=== PATIENT | female | born 1980 | race Two or more races ===

== ENCOUNTER 2023-12-15 13:32 | Emergency (ER) | payer MEDICAID ==
[~2023-12-15] VITALS: Ht 160 cm; Wt 102.1 kg
[2023-12-15 14:04] VITALS: BP 130/49; PULSE 83; RESP 18; O2SAT 99
[2023-12-15] MEDS ORDERED: PREN-96 PO (14:49)
[2023-12-15] MEDS ORDERED: ASPI-498 OR (14:49)
[2023-12-15] MEDS ORDERED: NIF10C PO ×2 (15:00→16:48)
== END 2023-12-15 14:44 | disposition left against medical advice (07) ==
LOC: ER 13:32
DX: O26.893 Other specified pregnancy related conditions, third trimester (principal); R10.9 Unspecified abdominal pain; O21.8 Other vomiting complicating pregnancy; Z3A.31 31 weeks gestation of pregnancy; Z53.21 Procedure and treatment not carried out due to patient leaving prior to being seen by health care provider

== ENCOUNTER 2023-12-15 14:13 | Observation (INO) | payer OTHER ==
[~2023-12-15] VITALS: Ht 162.6 cm; Wt 90.7 kg
[2023-12-15] MEDS ORDERED: PREN-96 PO (14:49)
[2023-12-15] MEDS ORDERED: ASPI-498 OR (14:49)
[2023-12-15] MEDS ORDERED: NIF10C PO ×3 (15:00→16:48)
[2023-12-15] MEDS: LACTATED RINGER'S 1,000 ML IV ONE (15:17)
[2023-12-15] MEDS: TERBUTALINE SULFATE 1 MG/ML 1ML VIAL SC SCH (15:17)
[2023-12-15 16:50] LABS: Basophils # (auto) 0 10 ^3/uL (0-0.2); Basophils % (auto) 0.1 % (0.0-2.0); Eosinophils # (auto) 0 10 ^3/uL (0-0.8); Eosinophils % (auto) 0.3 % (0.0-7.0); Hemoglobin 13.1 g/dL (12.2-16.2); Lymphocytes # (auto) 2.4 10 ^3/uL (0.4-5.4); Lymphocytes % (auto) 23.8 % (10.0-50.0); Mean Corpuscular Hemoglobin 32.5 pg (28.0-32.0); Mean Corpuscular Hgb Conc. 34.4 g/dL (32.0-36.0); Mean Corpuscular Volume 94.5 fL (80.0-100.0); Monocytes # (auto) 0.7 10 ^3/uL (0-1.3); Monocytes % (auto) 7.2 % (0.0-12.0); Neutrophils # (auto) 7.1 10 ^3/uL (1.6-8.6); Neutrophils % (auto) 68.6 % (37.0-80.0); Red Blood Cells 4.02 10^6/uL (4.0-5.20); Red Cell Distribution Width 13.7 % (11.8-14.3); White Blood Cell 10.3 10^3/uL (4.4-10.8)
[2023-12-15 17:05] LABS: INR 0.99 (0.9-1.15); Partial Thromboplastin Time 28.2 SEC (24.5-34.5); Prothrombin Time 10.4 sec (9.3-11.8)
[2023-12-15 17:10] LABS: Alanine Aminotransferase 128 U/L (7-40); Albumin 3.5 g/dL (3.2-4.8); Alkaline Phosphatase 115 U/L (46-116); Anion Gap 8 (5-15); Aspartate Aminotransferase 158 U/L (13-40); Bilirubin, Total 1.9 mg/dL (0.2-1.0); Calcium 8.8 mg/dL (8.7-10.4); Carbon Dioxide 22 mmol/L (20-30); Chloride 108 mmol/L (98-107); Glucose 100 mg/dL (74-106); Sodium 138 mmol/L (136-145); Total Protein 6.2 g/dL (5.7-8.2)
[2023-12-15 17:18] LABS: BUN/Creatinine Ratio 10.9 (10.0-20.0); Blood Urea Nitrogen < 5 mg/dL (9-23)
[2023-12-15] MEDS: POTASSIUM CHL 20 Meq TABLET PO ONE (17:48)
[2023-12-15 18:06] LABS: Urine Bacteria NONE SEEN /hpf (None Seen); Urine Blood 1+ /uL (Negative); Urine Clarity HAZY (Clear); Urine Color Yellow (Yellow); Urine Mucus FEW (None Seen); Urine Protein, UAD TRACE (Negative); Urine Specific Gravity 1.017 (1.001-1.035); Urine Urobilinogen Normal (Negative); Urine WBC 9 /hpf (0 - 5); Urine pH 6.5 (5.0-8.0)
[2023-12-15 18:12] LABS: Amphetamine Screen, Urine Neg (NEGATIVE)
[2023-12-15 18:13] LABS: Barbiturate Scree,Urine Neg (NEGATIVE); Benzodiazephine Screen, Urine Neg (NEGATIVE); Cannabinoid Screen, Urine Neg (NEGATIVE); Cocaine Screen, Urine Neg (NEGATIVE); Opiate Scree,Urine Neg (NEGATIVE); Phencyclidine Screen, Urine Neg (NEGATIVE)
[2023-12-15 18:34] LABS: Hepatitis B Surface Antigen Negative (Negative)
[2023-12-15 18:54] LABS: Hepatitis A Ab IgM Negative
[2023-12-15 18:55] LABS: Hepatitis B Core IgM Negative; Hepatitis C Antibody Negative (Negative)
[2023-12-16 06:06] LABS: RPR Non Reactive (Non Reactive)
[2023-12-16 11:06] LABS: Rubella Antibodies, IgG 1.57 index (Immune >0.99)
== END 2023-12-15 17:52 | disposition home or self-care (01) ==
LOC: LDRP 14:13
PROVIDERS: ADMIT Obstetrics & Gynecology; ATTEND Obstetrics & Gynecology
DX: O60.03 Preterm labor without delivery, third trimester (principal); O26.892 Other specified pregnancy related conditions, second trimester; R10.9 Unspecified abdominal pain; Z3A.31 31 weeks gestation of pregnancy; Z88.0 Allergy status to penicillin; Z79.899 Other long term (current) drug therapy
CPT/HCPCS: 36415; 59025; 76805; 80053; 80074; 80307; 81001; 81002; 83036; 85025; 85610; 85730; 86592; 86703; 86762; 87340; 94760; 96360; 96361; 96372; G0378; J3105

== ENCOUNTER 2023-12-15 22:47 | Observation (INO) | payer OTHER ==
[~2023-12-15] VITALS: Ht 162.6 cm; Wt 90.7 kg
[~2023-12-15 22:47] MED LIST: ASPI-498 OR; NIF10C PO; PREN-96 PO
== END 2023-12-16 01:18 | disposition home or self-care (01) ==
LOC: LDRP 22:47
PROVIDERS: ADMIT Obstetrics & Gynecology; ATTEND Obstetrics & Gynecology
DX: O62.9 Abnormality of forces of labor, unspecified (principal); O26.893 Other specified pregnancy related conditions, third trimester; R10.13 Epigastric pain; Z3A.31 31 weeks gestation of pregnancy; Z88.0 Allergy status to penicillin
CPT/HCPCS: 59025; 81002; 94760; G0378

== ENCOUNTER 2023-12-18 11:08 | Observation (INO) | payer OTHER ==
[~2023-12-18] VITALS: Ht 162.6 cm; Wt 96.2 kg
[2023-12-18 12:22] LABS: Basophils # (auto) 0 10 ^3/uL (0-0.2); Basophils % (auto) 0.4 % (0.0-2.0); Eosinophils # (auto) 0.1 10 ^3/uL (0-0.8); Eosinophils % (auto) 0.8 % (0.0-7.0); Hematocrit 38.6 % (36.0-46.0); Hemoglobin 13.1 g/dL (12.2-16.2); Lymphocytes # (auto) 1.4 10 ^3/uL (0.4-5.4); Mean Corpuscular Hemoglobin 32.2 pg (28.0-32.0); Mean Corpuscular Hgb Conc. 33.8 g/dL (32.0-36.0); Mean Corpuscular Volume 95.2 fL (80.0-100.0); Monocytes # (auto) 0.7 10 ^3/uL (0-1.3); Monocytes % (auto) 8.2 % (0.0-12.0); Neutrophils # (auto) 5.9 10 ^3/uL (1.6-8.6); Neutrophils % (auto) 73.6 % (37.0-80.0); Red Blood Cells 4.06 10^6/uL (4.0-5.20); Red Cell Distribution Width 13.9 % (11.8-14.3); White Blood Cell 8.1 10^3/uL (4.4-10.8)
[2023-12-18 12:37] LABS: Alanine Aminotransferase 116 U/L (7-40); Albumin 3.5 g/dL (3.2-4.8); Alkaline Phosphatase 113 U/L (46-116); Anion Gap 7 (5-15); Aspartate Aminotransferase 58 U/L (13-40); Bilirubin, Total 0.5 mg/dL (0.2-1.0); Calcium 8.7 mg/dL (8.7-10.4); Carbon Dioxide 22 mmol/L (20-30); Chloride 109 mmol/L (98-107); Glucose 93 mg/dL (74-106); INR 0.98 (0.9-1.15); Partial Thromboplastin Time 29.3 SEC (24.5-34.5); Potassium 3.8 mmol/L (3.5-5.1); Prothrombin Time 10.3 sec (9.3-11.8); Sodium 138 mmol/L (136-145); Uric Acid 3.4 mg/dL (3.1-7.8)
[2023-12-18 12:39] LABS: BUN/Creatinine Ratio 9.8 (10.0-20.0); Blood Urea Nitrogen < 5 mg/dL (9-23)
[2023-12-18 12:49] LABS: Urine Bacteria FEW /hpf (None Seen); Urine Blood Negative /uL (Negative); Urine Clarity HAZY (Clear); Urine Color Yellow (Yellow); Urine Mucus FEW (None Seen); Urine Protein, UAD TRACE (Negative); Urine Specific Gravity 1.018 (1.001-1.035); Urine Urobilinogen Normal (Negative); Urine WBC 3 /hpf (0 - 5); Urine pH 6.5 (5.0-8.0)
[2023-12-18 13:03] LABS: Creatinine, Urine 129.09 mg/dL (30.0-125.0); Urine Protein/Creatinine Ratio 0.22
[2023-12-18] MEDS: NIFEdipine 10 MG CAP PO ONE (13:10)
== END 2023-12-18 13:46 | disposition home or self-care (01) ==
LOC: LDRP 11:08
PROVIDERS: ADMIT Obstetrics & Gynecology; ATTEND Obstetrics & Gynecology
DX: O60.03 Preterm labor without delivery, third trimester (principal); O21.2 Late vomiting of pregnancy; O26.893 Other specified pregnancy related conditions, third trimester; R10.13 Epigastric pain; R79.89 Other specified abnormal findings of blood chemistry; Z3A.32 32 weeks gestation of pregnancy; Z88.0 Allergy status to penicillin
CPT/HCPCS: 36415; 59025; 76705; 76818; 80053; 81001; 81002; 82570; 84156; 84550; 85025; 85610; 85730; G0378

== ENCOUNTER 2023-12-21 09:45 | Observation (INO) | payer OTHER | END 2023-12-21 12:09 | disposition home or self-care (01) | LOC: LDRP 09:45 → UNDOADMOB 09:45 → LDRP 09:56 → UNDODISOB 12:09 | PROVIDERS: ADMIT Obstetrics & Gynecology; ATTEND Obstetrics & Gynecology | DX: O24.419 Gestational diabetes mellitus in pregnancy, unspecified control (principal); O60.03 Preterm labor without delivery, third trimester; O26.893 Other specified pregnancy related conditions, third trimester; R51.9 Headache, unspecified; R79.89 Other specified abnormal findings of blood chemistry; Z3A.32 32 weeks gestation of pregnancy; Z88.0 Allergy status to penicillin | CPT/HCPCS: 59025; 76817; 76818; 81002; 82948; 82962; G0378 ==

== ENCOUNTER 2023-12-28 09:56 | Observation (INO) | payer MEDICAID, OTHER | END 2023-12-28 11:25 | disposition home or self-care (01) | LOC: LDRP 09:56 → UNDOADMOB 09:56 → LDRP 10:03 → UNDODISOB 11:25 | PROVIDERS: ADMIT Obstetrics & Gynecology; ATTEND Obstetrics & Gynecology | DX: O24.419 Gestational diabetes mellitus in pregnancy, unspecified control (principal); O60.03 Preterm labor without delivery, third trimester; Z3A.33 33 weeks gestation of pregnancy; Z88.0 Allergy status to penicillin | CPT/HCPCS: 59025; 76818; 81002; 82948; 82962; 94760; G0378 ==

== ENCOUNTER 2024-01-04 05:55 | Inpatient (IN) | payer MEDICAID ==
[~2024-01-04] VITALS: Ht 160 cm; Wt 86.2 kg
[2024-01-04] MEDS ORDERED: MAGNESIUM SULFATE 100 ML IV ONE (06:30)
[2024-01-04] MEDS: MAGNESIUM SULFATE 100 ML IV ONE (06:41)
[2024-01-04] MEDS: TERBUTALINE SULFATE 1 MG/ML 1ML VIAL SC SCH (06:45)
[2024-01-04] MEDS: CLINDAMYCIN 900MG IV 50 ML IV ONE (06:45)
[2024-01-04] MEDS: BETAMETHASONE ACET (30mg/5ml) 5ml Vial 6mg/ml IM SCH (06:48)
[2024-01-04 06:53] LABS: Basophils # (auto) 0.1 10 ^3/uL (0-0.2); Basophils % (auto) 0.9 % (0.0-2.0); Eosinophils # (auto) 0.1 10 ^3/uL (0-0.8); Eosinophils % (auto) 0.7 % (0.0-7.0); Hematocrit 39.7 % (36.0-46.0); Hemoglobin 13.6 g/dL (12.2-16.2); Lymphocytes # (auto) 1.6 10 ^3/uL (0.4-5.4); Lymphocytes % (auto) 18.8 % (10.0-50.0); Mean Corpuscular Hemoglobin 32.1 pg (28.0-32.0); Mean Corpuscular Hgb Conc. 34.1 g/dL (32.0-36.0); Monocytes # (auto) 0.7 10 ^3/uL (0-1.3); Monocytes % (auto) 7.6 % (0.0-12.0); Neutrophils # (auto) 6.2 10 ^3/uL (1.6-8.6); Red Blood Cells 4.23 10^6/uL (4.0-5.20); Red Cell Distribution Width 13.9 % (11.8-14.3); White Blood Cell 8.6 10^3/uL (4.4-10.8)
[2024-01-04 07:02] LABS: Urine Bacteria FEW /hpf (None Seen); Urine Blood Negative /uL (Negative); Urine Clarity Clear (Clear); Urine Color Yellow (Yellow); Urine Mucus FEW (None Seen); Urine Protein, UAD Negative (Negative); Urine Specific Gravity 1.014 (1.001-1.035); Urine Urobilinogen Normal (Negative); Urine WBC 1 /hpf (0 - 5)
[2024-01-04] MEDS: MAGNESIUM SULFATE 40MG/ML 1,000 ML IV SCH (07:03)
[2024-01-04 07:09] LABS: Amphetamine Screen, Urine Neg (NEGATIVE); Barbiturate Scree,Urine Neg (NEGATIVE); Benzodiazephine Screen, Urine Neg (NEGATIVE); Cannabinoid Screen, Urine Neg (NEGATIVE); Cocaine Screen, Urine Neg (NEGATIVE); Opiate Scree,Urine Neg (NEGATIVE); Phencyclidine Screen, Urine Neg (NEGATIVE)
[2024-01-04 07:11] LABS: Alanine Aminotransferase 25 U/L (7-40); Alkaline Phosphatase 101 U/L (46-116); Anion Gap 9 (5-15); Aspartate Aminotransferase 20 U/L (13-40); BUN/Creatinine Ratio 10.2 (10.0-20.0); Blood Urea Nitrogen 5 mg/dL (9-23); Calcium 9.2 mg/dL (8.5-10.1); Carbon Dioxide 21 mmol/L (20-30); Chloride 108 mmol/L (98-107); Glucose 105 mg/dL (74-106); Potassium 3.5 mmol/L (3.5-5.1); Sodium 138 mmol/L (136-145)
[2024-01-04 07:12] LABS: Albumin 3.8 g/dL (3.2-4.8); Bilirubin, Total 0.5 mg/dL (0.2-1.0); Total Protein 6.3 g/dL (5.7-8.2)
[2024-01-04 07:27] LABS: INR 0.98 (0.9-1.15); Partial Thromboplastin Time 27.7 SEC (24.5-34.5); Prothrombin Time 10.3 sec (9.3-11.8)
[2024-01-05 08:06] LABS: RPR Non Reactive (Non Reactive)
[2024-01-06 18:06] LABS: Treponema pallidum Ab (FTA-Ab) Non Reactive (Non Reactive)
== END 2024-01-04 07:45 | disposition home or self-care (01) | DRG 566 ==
LOC: LDRP 05:55 → OBSVTOIN 06:30
PROVIDERS: ADMIT Obstetrics & Gynecology; ATTEND Obstetrics & Gynecology
DX: O42.913 Preterm premature rupture of membranes, unspecified as to length of time between rupture and onset of labor, third trimester (principal); O24.419 Gestational diabetes mellitus in pregnancy, unspecified control; E66.01 Morbid (severe) obesity due to excess calories; O99.213 Obesity complicating pregnancy, third trimester; Z3A.34 34 weeks gestation of pregnancy; Z88.0 Allergy status to penicillin
CPT/HCPCS: 36415; 59025; 80053; 80307; 81001; 81002; 85025; 85610; 85730; 86592; 86850; 86900; 86901; 94760; 96360; 96361; 96365; 96366; 96372; G0378; J3490

== ENCOUNTER 2024-02-16 21:04 | Emergency (ER) | payer MEDICAID ==
[~2024-02-16] VITALS: Ht 157.5 cm; Wt 95.7 kg
[~2024-02-16 21:04] MED LIST changes: +DICY10CA PO
[2024-02-16 21:10] VITALS: BP 110/75; PULSE 65; RESP 18; O2SAT 99
[2024-02-16] MEDS ORDERED: MORPHINE SULFATE 4 MG/ML SYR/VIAL IV ONE (21:30)
[2024-02-16] MEDS ORDERED: SODIUM CHLORIDE 0.9% 1,000 ML IVB ONE (21:30)
[2024-02-16] MEDS ORDERED: ONDANSETRON HCL 4 MG/2 ML VIAL IV ONE (21:30)
[2024-02-16] MEDS ORDERED: PANTOPRAZOLE 40 MG/10 ML VIAL INJ IV ONE (21:30)
[2024-02-16 21:46] LABS: Basophils # (auto) 0.1 10 ^3/uL (0-0.2); Basophils % (auto) 0.7 % (0.0-2.0); Eosinophils # (auto) 0.2 10 ^3/uL (0-0.8); Eosinophils % (auto) 3.2 % (0.0-7.0); Hematocrit 38.9 % (36.0-46.0); Hemoglobin 13.4 g/dL (12.2-16.2); Lymphocytes # (auto) 2.4 10 ^3/uL (0.4-5.4); Mean Corpuscular Hemoglobin 32.1 pg (28.0-32.0); Mean Corpuscular Hgb Conc. 34.4 g/dL (32.0-36.0); Mean Corpuscular Volume 93.3 fL (80.0-100.0); Monocytes # (auto) 0.6 10 ^3/uL (0-1.3); Monocytes % (auto) 8.4 % (0.0-12.0); Neutrophils # (auto) 4.2 10 ^3/uL (1.6-8.6); Neutrophils % (auto) 55.7 % (37.0-80.0); Red Blood Cells 4.17 10^6/uL (4.0-5.20); Red Cell Distribution Width 13.4 % (11.8-14.3); White Blood Cell 7.6 10^3/uL (4.4-10.8)
[2024-02-16 22:09] LABS: Alanine Aminotransferase 66 U/L (7-40); Albumin 4.4 g/dL (3.2-4.8); Alkaline Phosphatase 121 U/L (46-116); Anion Gap 8 (5-15); Aspartate Aminotransferase 20 U/L (13-40); BUN/Creatinine Ratio 15.1 (10.0-20.0); Blood Urea Nitrogen 13 mg/dL (9-23); Calcium 9.9 mg/dL (8.7-10.4); Carbon Dioxide 28 mmol/L (20-30); Chloride 104 mmol/L (98-107); Glucose 86 mg/dL (74-106); Lipase 49 U/L (12-53); Potassium 4.3 mmol/L (3.5-5.1); Sodium 140 mmol/L (136-145)
[2024-02-16 22:10] LABS: Bilirubin, Total 0.4 mg/dL (0.2-1.0)
[2024-02-16 22:25] LABS: Urine Bacteria None Seen /hpf (None Seen)
[2024-02-16 22:48] LABS: Urine Blood Negative /uL (Negative); Urine Clarity Clear (Clear); Urine Color Light-Yellow (Yellow); Urine Mucus FEW (None Seen); Urine Protein, UAD Negative (Negative); Urine Specific Gravity 1.021 (1.001-1.035); Urine Urobilinogen Normal (Negative); Urine WBC 3 /hpf (0 - 5)
[2024-02-17] MEDS ORDERED: LIDOCAINE W/ EPINEPHRINE 1% 20ML VIAL ONE (14:38)
[2024-02-18] MEDS ORDERED: METR-344 PO (14:37)
[2024-02-18] MEDS ORDERED: OXY5T PO (14:37)
[2024-02-18] MEDS ORDERED: LEVO500T91 PO (14:37)
== END 2024-02-17 03:07 | disposition left against medical advice (07) ==
LOC: ER 21:04
DX: K80.20 Calculus of gallbladder without cholecystitis without obstruction (principal); N39.0 Urinary tract infection, site not specified; Z88.0 Allergy status to penicillin
CPT/HCPCS: 36415; 76705; 80053; 81001; 83690; 85025; 99284; J2270; J2405; C9113

== ENCOUNTER 2024-02-17 09:25 | Inpatient (IN) | payer MEDICAID ==
[~2024-02-17] VITALS: Ht 160 cm; Wt 102.0 kg
[2024-02-17] MEDS: ONDANSETRON HCL 4 MG/2 ML VIAL IV ONE (11:02)
[2024-02-17] MEDS: MORPHINE SULFATE 4 MG/ML SYR/VIAL IV ONE (11:03)
[2024-02-17] MEDS ORDERED: DOCUSATE SOD 100 MG CAP PO PRN (13:00)
[2024-02-17] MEDS ORDERED: ONDANSETRON HCL 4 MG/2 ML VIAL IV PRN ×2 (13:00→16:45)
[2024-02-17] MEDS: SODIUM CHLORIDE 0.9% 1,000 ML IV SCH ×2 (14:02→19:29)
[2024-02-17] MEDS: metroNIDAZOLE 500MG/100ML 100 ML IV ONE ×2 (14:45→15:13)
[2024-02-17] MEDS: levoFLOXacin 500MG 100 ML IV ONE (14:45)
[2024-02-17] MEDS: CELECOXIB 100 MG CAP ONE (14:48)
[2024-02-17] MEDS: GABAPENTIN 400 MG CAP ONE (14:48)
[2024-02-17] MEDS: ACETAMINOPHEN IV 100 ML IV ONE (14:48)
[2024-02-17] MEDS: CIPROFLOXACIN 400MG/200ML 200 ML IV ONE (15:13)
[2024-02-17] MEDS ORDERED: LIDOCAINE 2% (LOCAL ANESTH.) PF 5ml SDV ONE (15:21)
[2024-02-17] MEDS ORDERED: PROPOFOL 10 MG/ML 20 ML IV ONE (15:21)
[2024-02-17] MEDS ORDERED: KETOROLAC TROMETH 30 MG/ML 1ML VIAL ONE (15:21)
[2024-02-17] MEDS ORDERED: ONDANSETRON HCL 4 MG/2 ML VIAL ONE (15:21)
[2024-02-17] MEDS ORDERED: ROCURONIUM 10MG/ML 10ML VIAL IV ONE (15:21)
[2024-02-17] MEDS ORDERED: GLYCOPYRROLATE 0.2 MG/ML 1ML VIAL ONE (15:21)
[2024-02-17] MEDS ORDERED: DexAMETHasone SOD PHOS 10MG/1ML VIAL INJ ONE (15:21)
[2024-02-17] MEDS ORDERED: KETAMINE 50mg/ML 1ml syringe ONE (15:22)
[2024-02-17] MEDS ORDERED: fentaNYL CITRATE 100 MCG/2 ML VL ONE (15:22)
[2024-02-17] MEDS ORDERED: SUGAMMADEX 200mg/2ml Vial (100MG/ML) IV ONE (15:23)
[2024-02-17 15:30] LABS: INR 1.03 (0.9-1.15); Prothrombin Time 10.9 sec (9.3-11.8)
[2024-02-17 16:25] VITALS: PULSE 67; RESP 13
[2024-02-17] MEDS: HYDROmorphone HCL 2 MG/ML VL/or syr IV ONE (16:43)
[2024-02-17] MEDS ORDERED: FLUMAZENIL 0.1 MG/ML INJ 10ML MDV IV PRN (16:45)
[2024-02-17] MEDS ORDERED: ePHEDrine SULFATE 50 MG/ML AMP IV PRN (16:45)
[2024-02-17] MEDS ORDERED: NALOXONE HCL 0.4 MG/ML VIAL IV PRN (16:45)
[2024-02-17] MEDS ORDERED: ACETAMINOPHEN/CODEINE#3 (300/30mg) TAB PO PRN (16:45)
[2024-02-17] MEDS ORDERED: hydrALAZINE HCL 20 MG/ML VL IV PRN (16:45)
[2024-02-17] MEDS ORDERED: LABETALOL HCL 5 MG/ML 4ML SYRINGE IV PRN (16:45)
[2024-02-17] MEDS ORDERED: fentaNYL CITRATE 100 MCG/2 ML VL IV PRN (16:45)
[2024-02-17] MEDS: HYDROmorphone HCL 2 MG/ML VL/or syr ONE (16:47)
[2024-02-17] MEDS: HYDROmorphone HCL 2 MG/ML VL/or syr IV PRN (16:52)
[2024-02-17 18:02] VITALS: BP 104/63; PULSE 67; RESP 18; TEMP 97.8; O2SAT 97
[2024-02-17 18:03] VITALS: BP 104/63; PULSE 67; TEMP 97.8; O2SAT 97
[2024-02-17] MEDS: MORPHINE SULFATE INJ 2 MG/ml SYRG IV PRN (19:38)
[2024-02-17 21:00] VITALS: BP 107/61; PULSE 76; RESP 18; TEMP 98.5; O2SAT 91
[2024-02-17] MEDS: metroNIDAZOLE 500MG/100ML 100 ML IV SCH (21:57)
[2024-02-18 00:02] VITALS: BP 104/64; PULSE 78; RESP 16; TEMP 97.8; O2SAT 94
[2024-02-18 05:00] VITALS: BP 101/55; PULSE 57; RESP 16; TEMP 97.7; O2SAT 94
[2024-02-18 06:33] LABS: Basophils # (auto) 0 10 ^3/uL (0-0.2); Basophils % (auto) 0.2 % (0.0-2.0); Eosinophils # (auto) 0 10 ^3/uL (0-0.8); Hematocrit 41.6 % (36.0-46.0); Lymphocytes % (auto) 11.4 % (10.0-50.0); Mean Corpuscular Hemoglobin 32.1 pg (28.0-32.0); Mean Corpuscular Hgb Conc. 33.7 g/dL (32.0-36.0); Mean Corpuscular Volume 95.2 fL (80.0-100.0); Monocytes # (auto) 0.2 10 ^3/uL (0-1.3); Monocytes % (auto) 2.9 % (0.0-12.0); Neutrophils # (auto) 7.3 10 ^3/uL (1.6-8.6); Neutrophils % (auto) 85.5 % (37.0-80.0); Nucleated Red Blood Cells % 0.1 %; Red Blood Cells 4.37 10^6/uL (4.0-5.20); Red Cell Distribution Width 13.5 % (11.8-14.3); White Blood Cell 8.5 10^3/uL (4.4-10.8)
[2024-02-18 06:53] LABS: Alanine Aminotransferase 56 U/L (7-40); Alkaline Phosphatase 112 U/L (46-116); Anion Gap 8 (5-15); Aspartate Aminotransferase 25 U/L (13-40); BUN/Creatinine Ratio 8.7 (10.0-20.0); Bilirubin, Total 0.7 mg/dL (0.2-1.0); Blood Urea Nitrogen 6 mg/dL (9-23); Calcium 9.3 mg/dL (8.7-10.4); Carbon Dioxide 21 mmol/L (20-30); Chloride 107 mmol/L (98-107); Glucose 122 mg/dL (74-106); Potassium 4.1 mmol/L (3.5-5.1); Sodium 136 mmol/L (136-145)
[2024-02-18 06:54] LABS: Total Protein 6.8 g/dL (5.7-8.2)
[2024-02-18 09:00] VITALS: BP 99/49; PULSE 60; RESP 18; TEMP 98.2; O2SAT 95
[2024-02-18] MEDS: levoFLOXacin 500MG 100 ML IV SCH (09:29)
[2024-02-18] MEDS: oxyCODONE HCL 5MG TAB PO PRN (09:29)
[2024-02-18 12:32] VITALS: BP 116/59; PULSE 64; RESP 18; TEMP 98.2; O2SAT 93
[2024-02-18] MEDS ORDERED: OXY5T PO (14:37)
[2024-02-18] MEDS ORDERED: METR-344 PO (14:37)
[2024-02-18] MEDS ORDERED: LEVO500T91 PO (14:37)
[2024-02-18 16:39] VITALS: BP 110/56; PULSE 71; RESP 20; TEMP 98.3; O2SAT 93
== END 2024-02-18 18:50 | disposition home or self-care (01) | DRG 263 ==
LOC: ER 09:25 → OVERFLOW 14:44 → EAST 18:00
PROVIDERS: ADMIT Internal Medicine; ATTEND Internal Medicine
PROC: 0FT44ZZ Resection of Gallbladder, Percutaneous Endoscopic Approach (ICD-10-PCS; principal; 2024-02-17 15:25)
DX: K80.10 Calculus of gallbladder with chronic cholecystitis without obstruction (principal); Z79.82 Long term (current) use of aspirin; Z88.0 Allergy status to penicillin; Z79.899 Other long term (current) drug therapy
CPT/HCPCS: 36415; 78226; 80053; 81025; 82565; 84702; 85025; 85610; 86850; 86900; 86901; 96361; 96374; 96375; G0378; J0131; J1100; J1885; J1956; J2001; J2405; J2704; J3490

== ENCOUNTER 2024-11-14 19:08 | Inpatient (IN) | payer MEDICAID ==
[~2024-11-14 19:08] MED LIST changes: +LEVO500T91 PO; +METR-344 PO; -NIF10C PO; +NIFE10CA52 PO; +OXY5T PO
--- NOTE | 2024-11-14 19:55 | ED.PDOC ---
GI ASSESSMENT HPI Comments Fiordaliza Santana is a 44-year-old female patient who presents to the ER referred by urgent care due to burning epigastric pain which started at 1:00 a.m. today, intensity 9/10, triggered after eating (tamales and coffee) and improved after fasting, associated with one episode of yellow emesis, chills, reflux and belching. Patient had presented same symptoms approximately eight months ago when she was diagnosed with cholecystitis, she is currently status post a cholecystectomy. Denies fever, palpitation, syncope, chest pain, dyspnea, nausea, diarrhea, constipation, bleeding, sick contacts, recent travel and motor or sensory deficits. Past medical history: GERD, 2023 cholecystitis status post Josefina-Lap , gestations two, para two, A0 (diagnosed use contraception methods, she is not sexually active at the moment) Surgical history 2023 Josefina-Lap Family history: Noncontributory Social history: Lives in [place] with and two sons. Denies current tobacco, alcohol and other drug abuse Allergies: Penicillins Home medication: Denies Chief Complaint: Abdominal Pain Time Seen by MD: 19:13 Primary Care Provider: UNKNOWN Allergies: Coded Allergies: Penicillins (Verified Allergy, Unknown, 12/18/23) Home Meds Active Scripts Oxycodone Hcl (OXYCODONE HCL) 5 Mg Tb, 5 MG PO Q8HPRN PRN, #10 TAB Prov:LINDA VICTORIA MD 02/18/24 Metronidazole (Flagyl) 500 Mg Tab, 1 TAB PO TID, #21 TAB Prov:LINDA VICTORIA MD 02/18/24 Levofloxacin Hemihydrate (LEVAQUIN 500 MG) 500 Mg Tab, 1 TAB PO DAILY, #7 TAB Prov:LINDA VICTORIA MD 02/18/24 Dicyclomine Hcl (BENTYL CAPSULE) 10 Mg Cp, 2 CAP PO Q6HPRN PRN, #30 CAP 3 Refills Prov:VASU VAUGHAN DO 01/28/24 Reported Medications Nifedipine (PROCARDIA CAPSULE) 10 Mg Cp, 10 MG PO Q6HR, CAP 12/15/23 Aspirin (ASPIRIN 81) 81 Mg Tab, 81 MG OR, TAB 12/15/23 Vit W/ Ferrous Fumara ( One Daily) Daily Tab, 1 TAB PO DAILY, #90 TAB 3 Refills 12/15/23 Past Medical History PAST MEDICAL HISTORY: Denies Surgical History: Denies all surgeries DERMATOLOGY PHYSICIAN History: No Pertinent DERMATOLOGY PHYSICIAN History Family History Family History: Reviewed,noncontributory to illness Social History Smoker: Non-Smoker Alcohol: Denies ETOH Use Drugs: Denies Drug Use Lives In: Home Physical Exam General Appearance: No Apparent Distress, Normal HEENT: Normal ENT Inspection, Pharynx Normal, TMs Normal Neck: Full Range of Motion, Non-Tender, Normal, Normal Inspection Respiratory: Chest Non-Tender, Lungs Clear, No Accessory Muscle Use, No Respiratory Distress, Normal Breath Sounds Cardiovascular: No Edema, No JVD, No Murmur, No Gallop, Normal Peripheral Pulses, Regular Rate/Rhythm Breast Exam: Deferred Gastrointestinal: Distended, Epigastric, No Organomegaly, No Pulsatile Mass, Normal Bowel Sounds, RUQ, Tenderness Genitalia: Deferred Pelvic: Deferred Rectal: Deferred Extremities: No calf tenderness, Normal capillary refill, Normal inspection, Normal range of motion, Non-tender, No pedal edema Neurologic: Alert, food preparation worker II-XII nml as Tested, No Motor Deficits, Normal Affect, Normal Mood, No Sensory Deficits Cerebellar Function: Normal Reflexes: Normal Skin: Dry, Normal Color, Warm Lymphatic: No Adenopathy Was a procedure done? Was a procedure done?: No GI differential Dx Differential Diagnosis: Appendicitis, Cholangitis, Diverticular disease, Ectopic , Esophagitis, Gastritis/PUD, Gastroenteritis, Hepatitis, Pancreatitis, UTI, Urolithiasis X-Ray, Labs, Meds, VS Vital Signs Date Time Temp Pulse Resp B/P (MAP) Pulse Ox O2 Delivery O2 Flow Rate FiO2 11/14/24 19:25 98.1 72 20 132/69 (90) 99 Lab Test 11/14/24 19:53 11/14/24 19:50 Range/Units White Blood Count 7.2 4.4-10.8 10^3/uL Red Blood Count 4.98 4.0-5.20 10^6/uL Hemoglobin 16.1 12.2-16.2 g/dL Hematocrit 46.8 H 36.0-46.0 % Mean Corpuscular Volume 94.0 80.0-100.0 fL Mean Corpuscular Hemoglobin 32.4 H 28.0-32.0 pg Mean Corpuscular Hemoglobin Concent 34.5 32.0-36.0 g/dL Red Cell Distribution Width 13.2 11.8-14.3 % Platelet Count 331 140-450 10^3/uL Mean Platelet Volume 7.6 6.9-10.8 fL Neutrophils (%) (Auto) 68.8 37.0-80.0 % Lymphocytes (%) (Auto) 22.3 10.0-50.0 % Monocytes (%) (Auto) 5.9 0.0-12.0 % Eosinophils (%) (Auto) 2.3 0.0-7.0 % Basophils (%) (Auto) 0.7 0.0-2.0 % Neutrophils # (Auto) 4.9 1.6-8.6 10 ^3/uL Lymphocytes # (Auto) 1.6 0.4-5.4 10 ^3/uL Monocytes # (Auto) 0.4 0-1.3 10 ^3/uL Eosinophils # (Auto) 0.2 0-0.8 10 ^3/uL Basophils # (Auto) 0 0-0.2 10 ^3/uL Nucleated Red Blood Cells 0.0 % Prothrombin Time 10.4 9.3-11.8 sec Prothrombin Time INR 0.98 0.9-1.15 Activated Partial Thromboplast Time 26.0 24.5-34.5 SEC Sodium Level 138 136-145 mmol/L Potassium Level 3.7 3.5-5.1 mmol/L Chloride Level 105 98-107 mmol/L Carbon Dioxide Level 24 20-31 mmol/L Anion Gap 9 5-15 Blood Urea Nitrogen 13 9-23 mg/dL Creatinine 0.74 0.550-1.02 mg/dL Glomerular Filtration Rate Calc 104 >90 mL/min BUN/Creatinine Ratio 17.6 10.0-20.0 Serum Glucose 96 74-106 mg/dL Lactic Acid Level 2.1 *H 0.4-2.0 mmol/L Calcium Level 10.2 8.7-10.4 mg/dL Phosphorus Level 2.6 2.4-5.1 mg/dL Magnesium Level 2.1 1.6-2.6 mg/dL Total Bilirubin 1.1 H 0.2-1.0 mg/dL Aspartate Amino Transferase (AST) 601 H 13-40 U/L Alanine Aminotransferase (ALT) 756 H 7-40 U/L Alkaline Phosphatase 179 H 46-116 U/L Total Protein 8.2 5.7-8.2 g/dL Albumin 5.2 H 3.2-4.8 g/dL Lipase 37 12-53 U/L Thyroid Stimulating Hormone (TSH) 2.04 0.55-4.78 uIU/mL Beta HCG, Quantitative 0.4 L 1.5-4.2 mIU/mL Urine Color Yellow Yellow Urine Clarity Clear Clear Urine pH 6.0 5.0-9.0 Urine Specific [place] 1.015 1.001-1.035 Urine Protein Negative Negative Urine Ketones Trace Negative Urine Blood Negative Negative /uL Urine Nitrite Negative Negative Urine Bilirubin Negative Negative Urine Urobilinogen Normal Negative mg/dL Urine Leukocyte Esterase Negative Negative /uL Urine RBC 1 0 - 4 /hpf Urine Microscopic WBC 1 0-5 /HPF Urine Squamous Epithelial Cells Few <5 /hpf Urine Bacteria None seen None Seen /hpf Urine Glucose Normal Normal mg/dL Urine Opiates Screen Neg NEGATIVE Urine Fentanyl Screen Neg NEGATIVE Urine Barbiturates Screen Neg NEGATIVE Urine Phencyclidine Screen Neg NEGATIVE Urine Amphetamines Screen Neg NEGATIVE Urine Benzodiazepines Screen Neg NEGATIVE Urine Cocaine Screen Neg NEGATIVE Urine Cannabinoids Screen Neg NEGATIVE X-Ray, Labs, Meds, VS Comment Evaluated abdominal ultrasound (hepatic steatosis), laboratory findings (increased lactic acid and transaminitis) and vital signs. Time of 1ST Reevaluation: 21:13 Reevaluation 1ST: Unchanged Patient Education/Counseling: Diagnosis, Treatment, Prognosis Family Education/Counseling: Diagnosis, Treatment, Prognosis Departure 1 Departure Time of Disposition: 21:13 Impression: Primary Impression: Transaminitis Disposition: ADMITTED INPATIENT Admit to: Med Surg Condition: Serious Additional Instructions: Patient is admission due to transaminitis and increased lactic acid. Have ordered MRCP to rule out choledocholithiasis. Abdominal ultrasound just shows hepatic steatosis, have ordered acute hepatitis panel Critical Care Note Critical Care Time?: No Stability Stability form required: No Heart Score Heart Score: Heart Score Response (Comments) Value History N/A 0 EKG N/A 0 Age N/A 0 Risk Factors N/A 0 Troponin N/A 0 Total 0 BROOKLYN GALO RESIDENT Nov 14, 2024 19:55
[2024-11-14 20:07] LABS: Urine Bacteria None Seen /hpf (None Seen)
[2024-11-14 20:09] LABS: Basophils # (auto) 0 10 ^3/uL (0-0.2); Basophils % (auto) 0.7 % (0.0-2.0); Eosinophils # (auto) 0.2 10 ^3/uL (0-0.8); Eosinophils % (auto) 2.3 % (0.0-7.0); Hematocrit 46.8 % (36.0-46.0); Hemoglobin 16.1 g/dL (12.2-16.2); Lymphocytes # (auto) 1.6 10 ^3/uL (0.4-5.4); Lymphocytes % (auto) 22.3 % (10.0-50.0); Mean Corpuscular Hemoglobin 32.4 pg (28.0-32.0); Mean Corpuscular Hgb Conc. 34.5 g/dL (32.0-36.0); Monocytes # (auto) 0.4 10 ^3/uL (0-1.3); Monocytes % (auto) 5.9 % (0.0-12.0); Neutrophils # (auto) 4.9 10 ^3/uL (1.6-8.6); Neutrophils % (auto) 68.8 % (37.0-80.0); Platelet Count (auto) 331 10^3/uL (140-450); Red Blood Cells 4.98 10^6/uL (4.0-5.20); Red Cell Distribution Width 13.2 % (11.8-14.3); White Blood Cell 7.2 10^3/uL (4.4-10.8)
[2024-11-14 20:25] LABS: Anion Gap 9 (5-15); BUN/Creatinine Ratio 17.6 (10.0-20.0); Bilirubin, Total 1.1 mg/dL (0.2-1.0); Blood Urea Nitrogen 13 mg/dL (9-23); Calcium 10.2 mg/dL (8.7-10.4); Carbon Dioxide 24 mmol/L (20-31); Chloride 105 mmol/L (98-107); Glucose 96 mg/dL (74-106); INR 0.98 (0.9-1.15); Lipase 37 U/L (12-53); Magnesium 2.1 mg/dL (1.6-2.6); Potassium 3.7 mmol/L (3.5-5.1); Prothrombin Time 10.4 sec (9.3-11.8); Sodium 138 mmol/L (136-145)
[2024-11-14 20:27] LABS: Urine Blood Negative /uL (Negative); Urine Clarity Clear (Clear); Urine Color Yellow (Yellow); Urine Protein, UAD Negative (Negative); Urine Specific Gravity 1.015 (1.001-1.035); Urine Squamous Epithelial Cell FEW /hpf (<5); Urine Urobilinogen Normal (Negative); Urine WBC 1 /HPF (0-5)
--- NOTE | 2024-11-14 20:27 | DVH ---
ABDOMINAL ULTRASOUND CLINICAL HISTORY: Rule out choledocholithiasis, history of cholecystectomy TECHNIQUE: Multiple grayscale and color Doppler ultrasound images were obtained of the abdomen. WID: COMPARISON: US GALLBLADDER on DOS: 02/16/24, US ABDOMEN LIMITED on DOS: 12/18/23 FINDINGS: Liver and Biliary System: Increased echogenicity, increased sized measuring 18.7 cm. No focal hepa tic observations. No intrahepatic bile duct dilatation. The common duct measures 0.6 cm at the port a hepatis. The gallbladder surgically absent Pancreas: Obscured due to overlying bowel gas Kidneys: The right kidney is 10.6 cm . No hydronephrosis, increased echogenicity, shadowing stone, or focal lesion. IMPRESSION: Hepatomegaly with diffuse hepatic steatosis.
[2024-11-14 20:32] LABS: Alanine Aminotransferase 756 U/L (7-40); Albumin 5.2 g/dL (3.2-4.8); Alkaline Phosphatase 179 U/L (46-116); Aspartate Aminotransferase 601 U/L (13-40); Total Protein 8.2 g/dL (5.7-8.2)
[2024-11-14 20:38] LABS: Lactic Acid w/Reflex 2.1 mmol/L (0.4-2.0)
[2024-11-14 20:39] LABS: Amphetamine Screen, Urine Neg (NEGATIVE); Barbiturate Scree,Urine Neg (NEGATIVE); Benzodiazephine Screen, Urine Neg (NEGATIVE); Cannabinoid Screen, Urine Neg (NEGATIVE); Cocaine Screen, Urine Neg (NEGATIVE); Opiate Scree,Urine Neg (NEGATIVE); Phencyclidine Screen, Urine Neg (NEGATIVE)
[2024-11-14] MEDS ORDERED: MORPHINE SULFATE INJ 2 MG/ml SYRG IV PRN (22:00)
[2024-11-14] MEDS ORDERED: HYDROcodone-ACET 5/325MG TAB PO PRN (22:00)
[2024-11-14] MEDS ORDERED: ACETAMINOPHEN 325 MG TAB PO PRN (22:00)
[2024-11-14] MEDS ORDERED: PANTOPRAZOLE 40 MG/10 ML VIAL INJ IV SCH (22:00)
[2024-11-14] MEDS ORDERED: ONDANSETRON HCL 4 MG/2 ML VIAL IV PRN (22:00)
--- NOTE | 2024-11-14 23:27 | DVHHP2 ---
History of Present Illness Reason for Visit: Abdominal pain History of Present Illness 44-year-old female presents for evaluation of abdominal pain. Patient reports developing sharp epigastric abdominal pain have 1:00 a.m. today. She states now the pain radiates to her right upper quadrant. She reports having a c holecystectomy last year and reports the pain feeling the same. Reports nausea and vomiting. Denies fever or chills. No other acute complaints reported. Past Medical History Denies Past Surgical History Cholecystectomy Family History Noncontributory Smoke: No ALCOHOL: none Drugs: None Lives: with Family Review of Systems Review of Systems Review of systems are currently negative otherwise addressed in HPI. Allergies: Coded Allergies: Penicillins (Verified Allergy, Unknown, 12/18/23) Medications Current Medications Medications Dose Ordered Sig/Ysabel Route Start Time Stop Time Status Last Admin Dose Admin Pantoprazole Sodium 40 mg BID IV 11/14/24 22:00 Sodium Chloride 1,000 ml @ 100 mls/hr Q10H IV 11/14/24 19:45 Pantoprazole Sodium 40 mg DAILY IV 11/15/24 10:00 UNV Acetaminophen/ Hydrocodone Bitart 1 tab Q4HP PRN PO 11/14/24 22:00 UNV Ondansetron HCl 4 mg Q4HP PRN IV 11/14/24 22:00 UNV Acetaminophen 650 mg Q6HP PRN PO 11/14/24 22:00 UNV Morphine Sulfate 2 mg Q6HPRN PRN IV 11/14/24 22:00 UNV Exam Vital Signs Vital Signs Date Time Temp Pulse Resp B/P (MAP) Pulse Ox O2 Delivery O2 Flow Rate FiO2 11/14/24 19:25 98.1 72 20 132/69 (90) 99 Exam Gen: 44-year-old female in mild distress Skin: Warm, dry, normal color and texture, no rash. HEENT: Normocephalic atraumatic, mucous membranes moist and pink. Neck: Cervical and supraclavicular nodes normal without enlargement, trachea is midline, thyroid gland is normal without masses. Pulmonary: Clear to auscultation and percussion bilaterally. Cardiac: Regular rate and rhythm. No murmur Abdomen: Soft, epigastric tenderness, nondistended, bowel sounds present all 4 quadrants, no guarding, no rigidity, no organomegaly. Extremities: No cyanosis, clubbing, no edema Neuro: Cranial nerves II through XII grossly intact, normal affect and speech, no focal motor deficits. Labs/Xrays ORDERING PHYSICIAN: BROOKLYN GALO RESIDENT PROCEDURE(s): ABDL - ABDOMEN LIMITED REASON: Rule out choledocholithiasis ORDER NUMBER(s): [id number], ACCESSION NUMBER(s): [id number] ABDOMINAL ULTRASOUND CLINICAL HISTORY: Rule out choledocholithiasis, history of cholecystectomy TECHNIQUE: Multiple grayscale and color Doppler ultrasound images were obtained of the abdomen. WID: COMPARISON: US GALLBLADDER on DOS: 02/16/24, US ABDOMEN LIMITED on DOS: 12/18/23 FINDINGS: Liver and Biliary System: Increased echogenicity, increased sized measuring 18.7 cm. No focal hepatic observations. No intrahepatic bile duct dilatation. The common duct measures 0.6 cm at the noemy hepatis. The gallbladder surgically absent Pancreas: Obscured due to overlying bowel gas Kidneys: The right kidney is 10.6 cm . No hydronephrosis, increased echogenicity, shadowing stone, or focal lesion. IMPRESSION: Hepatomegaly with diffuse hepatic steatosis. Labs Test 11/14/24 21:50 11/14/24 19:53 11/14/24 19:50 Range/Units Lactic Acid Level 2.6 *H 0.4-2.0 mmol/L White Blood Count 7.2 4.4-10.8 10^3/uL Red Blood Count 4.98 4.0-5.20 10^6/uL Hemoglobin 16.1 12.2-16.2 g/dL Hematocrit 46.8 H 36.0-46.0 % Mean Corpuscular Volume 94.0 80.0-100.0 fL Mean Corpuscular Hemoglobin 32.4 H 28.0-32.0 pg Mean Corpuscular Hemoglobin Concent 34.5 32.0-36.0 g/dL Red Cell Distribution Width 13.2 11.8-14.3 % Platelet Count 331 140-450 10^3/uL Mean Platelet Volume 7.6 6.9-10.8 fL Neutrophils (%) (Auto) 68.8 37.0-80.0 % Lymphocytes (%) (Auto) 22.3 10.0-50.0 % Monocytes (%) (Auto) 5.9 0.0-12.0 % Eosinophils (%) (Auto) 2.3 0.0-7.0 % Basophils (%) (Auto) 0.7 0.0-2.0 % Neutrophils # (Auto) 4.9 1.6-8.6 10 ^3/uL Lymphocytes # (Auto) 1.6 0.4-5.4 10 ^3/uL Monocytes # (Auto) 0.4 0-1.3 10 ^3/uL Eosinophils # (Auto) 0.2 0-0.8 10 ^3/uL Basophils # (Auto) 0 0-0.2 10 ^3/uL Nucleated Red Blood Cells 0.0 % Prothrombin Time 10.4 9.3-11.8 sec Prothrombin Time INR 0.98 0.9-1.15 Activated Partial Thromboplast Time 26.0 24.5-34.5 SEC Sodium Level 138 136-145 mmol/L Potassium Level 3.7 3.5-5.1 mmol/L Chloride Level 105 98-107 mmol/L Carbon Dioxide Level 24 20-31 mmol/L Anion Gap 9 5-15 Blood Urea Nitrogen 13 9-23 mg/dL Creatinine 0.74 0.550-1.02 mg/dL Glomerular Filtration Rate Calc 104 >90 mL/min BUN/Creatinine Ratio 17.6 10.0-20.0 Serum Glucose 96 74-106 mg/dL Calcium Level 10.2 8.7-10.4 mg/dL Phosphorus Level 2.6 2.4-5.1 mg/dL Magnesium Level 2.1 1.6-2.6 mg/dL Total Bilirubin 1.1 H 0.2-1.0 mg/dL Aspartate Amino Transferase (AST) 601 H 13-40 U/L Alanine Aminotransferase (ALT) 756 H 7-40 U/L Alkaline Phosphatase 179 H 46-116 U/L Total Protein 8.2 5.7-8.2 g/dL Albumin 5.2 H 3.2-4.8 g/dL Lipase 37 12-53 U/L Thyroid Stimulating Hormone (TSH) 2.04 0.55-4.78 uIU/mL Beta HCG, Quantitative 0.4 L 1.5-4.2 mIU/mL Urine Color Yellow Yellow Urine Clarity Clear Clear Urine pH 6.0 5.0-9.0 Urine Specific [place] 1.015 1.001-1.035 Urine Protein Negative Negative Urine Ketones Trace Negative Urine Blood Negative Negative /uL Urine Nitrite Negative Negative Urine Bilirubin Negative Negative Urine Urobilinogen Normal Negative mg/dL Urine Leukocyte Esterase Negative Negative /uL Urine RBC 1 0 - 4 /hpf Urine Microscopic WBC 1 0-5 /HPF Urine Squamous Epithelial Cells Few <5 /hpf Urine Bacteria None seen None Seen /hpf Urine Glucose Normal Normal mg/dL Urine Opiates Screen Neg NEGATIVE Urine Fentanyl Screen Neg NEGATIVE Urine Barbiturates Screen Neg NEGATIVE Urine Phencyclidine Screen Neg NEGATIVE Urine Amphetamines Screen Neg NEGATIVE Urine Benzodiazepines Screen Neg NEGATIVE Urine Cocaine Screen Neg NEGATIVE Urine Cannabinoids Screen Neg NEGATIVE Assessment/Plan Assessment/Plan Assessment Acute abdominal pain Transaminitis Rule out choledocholithiasis Plan Admit the patient to [facility] to the hospitalist [facility] pending Levaquin GI consultation Pain management Continue treatment per orders. Plan discussed with: Patient My Orders Orders - DINORA MARRERO Procedure Category Date Status Time * Gi Dvh Concrete [employer]ber CONS 11/14/24 Transmitted 21:59 Pantoprazole PHA 11/15/24 Logged (Protonix) 10:00 Admit ADMIT 11/14/24 Transmitted 21:59 Hydrocodone-Acet PHA 11/14/24 Logged 5/325mg Tab ([place] 22:00 Ondansetron Hcl PHA 11/14/24 Logged (Zofran) 22:00 Complete Blood Count LAB 11/15/24 Verified 04:00 Comprehensive LAB 11/15/24 Verified Metabolic Panel 04:00 Condition: Stable MARY 11/14/24 In Process 21:59 Acetaminophen Tablet PHA 11/14/24 Logged (Tylenol Tablet) 22:00 Clear Liq Diet DIET 11/15/24 Transmitted Breakfast Bedrest With Bathroom MARY 11/14/24 In Process Privileg 21:59 Morphine Sulfate PHA 11/14/24 Logged Injection 22:00 Date of Service: Nov 14, 2024 Billing Provider: DINORA MARRERO Common Visit Codes: [id number] INP/OBS CARE (MOD) DINORA MARRERO Nov 14, 2024 23:26
[2024-11-14] MEDS ORDERED: levoFLOXacin 500MG 100 ML IV ONE (23:30)
[2024-11-15 02:20] VITALS: BP 115/62; PULSE 70; RESP 18; TEMP 97.8; O2SAT 98
[2024-11-15] MEDS: PANTOPRAZOLE 40 MG/10 ML VIAL INJ IV ONE (02:45)
[2024-11-15] MEDS: METOCLOPRAMIDE HCL 5MG/ml INJ 2ml VIAL IV ONE (02:45)
[2024-11-15] MEDS: SODIUM CHLORIDE 0.9% 1,000 ML IV SCH (02:46)
[2024-11-15 09:16] LABS: Hepatitis A Ab IgM Negative; Hepatitis B Core IgM Negative (Negative); Hepatitis B Surface Antigen Negative (Negative); Hepatitis C Antibody Negative (Negative)
[2024-11-15] MEDS ORDERED: levoFLOXacin 500MG 100 ML IV SCH (10:00)
[2024-11-15] MEDS ORDERED: PANTOPRAZOLE 40 MG/10 ML VIAL INJ IV SCH (10:00)
== END 2024-11-15 03:23 | disposition left against medical advice (07) ==
LOC: ER 19:08 → OVERFLOW 21:59
PROVIDERS: ADMIT Nurse Practitioner; ATTEND Nurse Practitioner
DX: K80.50 Calculus of bile duct without cholangitis or cholecystitis without obstruction (principal); E87.20 Acidosis, unspecified; K21.9 Gastro-esophageal reflux disease without esophagitis; R74.01 Elevation of levels of liver transaminase levels; Z53.29 Procedure and treatment not carried out because of patient's decision for other reasons; Z90.49 Acquired absence of other specified parts of digestive tract; Z88.0 Allergy status to penicillin
CPT/HCPCS: 36415; 76705; 80053; 80074; 80307; 81001; 83605; 83690; 83735; 84100; 84443; 84702; 85025; 85610; 85730; G0378; J2470

== ENCOUNTER 2024-11-17 16:57 | Emergency (ER) | payer MEDICAID ==
[~2024-11-17] VITALS: Ht 160 cm; Wt 98.7 kg
[2024-11-17] MEDS: SODIUM CHLORIDE 0.9% 1,000 ML IVB ONE (17:15)
[2024-11-17 17:21] LABS: Urine Bacteria None Seen /hpf (None Seen)
[2024-11-17 17:27] LABS: Urine Blood 2+ /uL (Negative); Urine Clarity Clear (Clear); Urine Color Light-Yellow (Yellow); Urine Protein, UAD Negative (Negative); Urine Specific Gravity 1.004 (1.001-1.035); Urine Squamous Epithelial Cell FEW /hpf (<5); Urine Urobilinogen Normal (Negative); Urine WBC < 1 /HPF (0-5); Urine pH 7.5 (5.0-9.0)
--- NOTE | 2024-11-17 17:37 | ED.PDOC ---
GI ASSESSMENT HPI Comments 44y F who presents to the ED for chief complaint of abdominal pain. Pt states she has been having epigastric abdominal pain since this AM. Pt states the pain is constant, non-radiating, sharp in nature, with no associated exacerbating or relieving factors. Pt has associated nausea but denies vomiting, diarrhea or any associated symptoms. Pt states she was seen at local clinic today and states she is post- cholecyectomy and was referred from clinic due to abnormal LFT's. Pt otherwise denies any other symptoms at this time. Chief Complaint: Abdominal Pain Time Seen by MD: 17:33 Primary Care Provider: UNKNOWN Reviewed Notes: Nurses Notes, Allergies Allergies: Coded Allergies: Penicillins (Verified Allergy, Unknown, 12/18/23) Home Meds Active Scripts Ondansetron Odt 4MG Tab (ZOFRAN PO) 4 Mg Tb, 4 MG PO Q6HP PRN for 20 Days, #40 TAB ODT TAB-DISSOLVE IN MOUTH, THEN SWALLOW Prov:AILEEN RAZO MD 11/17/24 Famotidine (PEPCID TABLET) 20 Mg Tb, 20 MG GT BID PRN for 20 Days, #40 TAB Prov:AILEEN RAZO MD 11/17/24 Oxycodone Hcl (OXYCODONE HCL) 5 Mg Tb, 5 MG PO Q8HPRN PRN, #10 TAB Prov:LINDA VICTORIA MD 02/18/24 Metronidazole (Flagyl) 500 Mg Tab, 1 TAB PO TID, #21 TAB Prov:LINDA VICTORIA MD 02/18/24 Levofloxacin Hemihydrate (LEVAQUIN 500 MG) 500 Mg Tab, 1 TAB PO DAILY, #7 TAB Prov:LINDA VICTORIA MD 02/18/24 Dicyclomine Hcl (BENTYL CAPSULE) 10 Mg Cp, 2 CAP PO Q6HPRN PRN, #30 CAP 3 Refills Prov:VASU VAUGHAN DO 01/28/24 Reported Medications Nifedipine (PROCARDIA CAPSULE) 10 Mg Cp, 10 MG PO Q6HR, CAP 12/15/23 Aspirin (ASPIRIN 81) 81 Mg Tab, 81 MG OR, TAB 12/15/23 Vit W/ Ferrous Fumara ( One Daily) Daily Tab, 1 TAB PO DAILY, #90 TAB 3 Refills 12/15/23 Information Source: Patient Mode of Arrival: Ambulatory Brought in by: self Past Medical History PAST MEDICAL HISTORY: Denies Surgical History: Cholecystectomy [employer] History: No Pertinent [employer] History Family History Family History: Reviewed,noncontributory to illness Social History Smoker: Non-Smoker Alcohol: Denies ETOH Use Drugs: Denies Drug Use Lives In: Home Constitutional: denies: chills, diaphoresis, fatigue, fever, malaise, sweats, weakness, others EENTM: denies: blurred vision, double vision, ear bleeding, ear discharge, ear drainage, ear pain, ear ringing, eye pain, eye redness, hearing loss, mouth pain, mouth swelling, nasal discharge, nose bleeding, nose congestion, nose pain, photophobia, tearing, throat pain, throat swelling, voice changes, others Respiratory: denies: cough, hemoptysis, orthopnea, SOB at rest, shortness of breath, SOB with excertion, stridor, wheezing, others Cardiovascular: denies: chest pain, dizzy spells, diaphoresis, Dyspnea on exertion, edema, irregular heart beat, left arm pain, lightheadedness, palpitations, PND, syncope, others Gastrointestinal: reports: abdominal pain, vomiting; denies: abdomen distended, blood streaked bowels, constipated, diarrhea, dysphagia, difficulty swallowing, hematemesis, melena, nausea, poor appetite, poor fluid intake, rectal bleeding, rectal pain, others Genitourinary: denies: abnormal vagina bleeding, burning, dyspareunia, dysuria, flank pain, frequency, hematuria, incontinence, pain, , vagina discharge, urgency, others Neurological: denies: dizziness, fainting, headache, left sided numbness, left sided weakness, numbness, paresthesia, pre-existing deficit, right sided numbnes s, right sided weakness, seizure, speech problems, tingling, tremors, weakness, others Musculoskeletal: denies: back pain, gout, joint pain, joint swelling, muscle pain, muscle stiffness, neck pain, others Integumetry: denies: bruises, change in color, change in hair/nails, dryness, laceration, lesions, lumps, rash, wounds, others Allergic/Immunocompromised: denies: Difficulty Healing, Frequent Infections, Hives, Itching, others Hematologic/Lymphatic: denies: anemia, blood clots, easy bleeding, easy bruising, swollen glands, others Endocrine: denies: excessive hunger, excessive sweating, excessive thirst, excessive urination, flushing, intolerance to cold, intolerance to heat, unexplained weight gain, unexplained weight loss, others Psychiatric: denies: anxiety, bipolar disorder, depression, hopeless, panic disorder, schizophrenia, sleepless, suicidal, others All Other Systems: Reviewed and Negative Physical Exam General Appearance: Mild Distress, Normal HEENT: Normal ENT Inspection, Pharynx Normal, TMs Normal Neck: Full Range of Motion, Non-Tender, Normal, Normal Inspection Respiratory: Chest Non-Tender, Lungs Clear, No Accessory Muscle Use, No Respiratory Distress, Normal Breath Sounds Cardiovascular: No Edema, No JVD, No Murmur, No Gallop, Normal Peripheral Pulses, Regular Rate/Rhythm Breast Exam: Deferred Gastrointestinal: No Organomegaly, Non Tender, No Pulsatile Mass, Normal Bowel Sounds, Soft Genitalia: Deferred Pelvic: Deferred Rectal: Deferred Extremities: No calf tenderness, Normal capillary refill, Normal inspection, Normal range of motion, Non-tender, No pedal edema Musculoskeletal : Apperance: Normal Neurologic: Alert, senior instrumentation engineer II-XII nml as Tested, No Motor Deficits, Normal Affect, Normal Mood, No Sensory Deficits Cerebellar Function: Normal Reflexes: Normal Skin: Dry, Normal Color, Warm Lymphatic: No Adenopathy Was a procedure done? Was a procedure done?: No GI differential Dx Differential Diagnosis: Diverticular disease, Gastroenteritis, Hernia, UTI, Dehydration, Electrolyte Imbalance, Food Poisoning, Bacterial, Viral Other Differential Diagnosis hepatic steatosis X-Ray, Labs, Meds, VS Vital Signs Date Time Temp Pulse Resp B/P (MAP) Pulse Ox O2 Delivery O2 Flow Rate FiO2 11/17/24 18:43 78 18 98 Room Air 11/17/24 18:43 98.9 78 18 120/66 (84) 98 98.9 11/17/24 17:09 98.0 76 16 125/64 (84) 98 Lab Test 11/17/24 17:29 11/17/24 17:00 Range/Units White Blood Count 5.7 4.4-10.8 10^3/uL Red Blood Count 4.75 4.0-5.20 10^6/uL Hemoglobin 15.3 12.2-16.2 g/dL Hematocrit 44.8 36.0-46.0 % Mean Corpuscular Volume 94.4 80.0-100.0 fL Mean Corpuscular Hemoglobin 32.2 H 28.0-32.0 pg Mean Corpuscular Hemoglobin Concent 34.1 32.0-36.0 g/dL Red Cell Distribution Width 13.5 11.8-14.3 % Platelet Count 305 140-450 10^3/uL Mean Platelet Volume 7.6 6.9-10.8 fL Neutrophils (%) (Auto) 63.9 37.0-80.0 % Lymphocytes (%) (Auto) 24.3 10.0-50.0 % Monocytes (%) (Auto) 7.3 0.0-12.0 % Eosinophils (%) (Auto) 3.6 0.0-7.0 % Basophils (%) (Auto) 0.9 0.0-2.0 % Neutrophils # (Auto) 3.6 1.6-8.6 10 ^3/uL Lymphocytes # (Auto) 1.4 0.4-5.4 10 ^3/uL Monocytes # (Auto) 0.4 0-1.3 10 ^3/uL Eosinophils # (Auto) 0.2 0-0.8 10 ^3/uL Basophils # (Auto) 0 0-0.2 10 ^3/uL Nucleated Red Blood Cells 0.1 % Sodium Level 140 136-145 mmol/L Potassium Level 3.6 3.5-5.1 mmol/L Chloride Level 109 H 98-107 mmol/L Carbon Dioxide Level 24 20-31 mmol/L Anion Gap 7 5-15 Blood Urea Nitrogen 6 L 9-23 mg/dL Creatinine 0.74 0.550-1.02 mg/dL Glomerular Filtration Rate Calc 104 >90 mL/min BUN/Creatinine Ratio 8.1 L 10.0-20.0 Serum Glucose 106 74-106 mg/dL Calcium Level 10.2 8.7-10.4 mg/dL Total Bilirubin 1.9 H 0.2-1.0 mg/dL Aspartate Amino Transferase (AST) 681 H 13-40 U/L Alanine Aminotransferase (ALT) 1349 H 7-40 U/L Alkaline Phosphatase 266 H 46-116 U/L Total Protein 7.9 5.7-8.2 g/dL Albumin 4.8 3.2-4.8 g/dL Lipase 43 12-53 U/L Urine Color Light-yellow Yellow Urine Clarity Clear Clear Urine pH 7.5 5.0-9.0 Urine Specific Avenel 1.004 1.001-1.035 Urine Protein Negative Negative Urine Ketones Negative Negative Urine Blood 2+ H Negative /uL Urine Nitrite Negative Negative Urine Bilirubin Negative Negative Urine Urobilinogen Normal Negative mg/dL Urine Leukocyte Esterase Negative Negative /uL Urine RBC 2 0 - 4 /hpf Urine Microscopic WBC < 1 0-5 /HPF Urine Squamous Epithelial Cells Few <5 /hpf Urine Bacteria None seen None Seen /hpf Urine Glucose Normal Normal mg/dL Current Medications Medications (Trade) Dose Ordered Sig/Ysabel Route Start Time Stop Time Status Last Admin Sodium Chloride 1,000 ml @ 1,000 mls/hr Q1H ONCE IVB 11/17/24 17:15 11/17/24 18:14 DC 11/17/24 17:15 [place] [id number] Ph: [phone] DIAGNOSTIC IMAGING Diagnostic Imaging Report : [id number] Signed PATIENT: ANNIE FULTON ACCT: [id number] UNIT: [id number] : 1980 LOC: ER ROOM / BED: / AGE / SEX: 44 / F ADM STATUS: REG ER SERVICE [id number] ORDERING PHYSICIAN: AILEEN RAZO MD PROCEDURE(s): ABPLIV - CT AB PEL WITH IV CON ONLY REASON: abd pain ORDER NUMBER(s): [id number], ACCESSION NUMBER(s): [id number] Exam: CT CT AB PEL WITH IV CON ONLY History: abd pain Comparison Study: None available at time of dictation. TECHNIQUE: Multidetector CT of the abdomen and pelvis with contrast. Axial, cor onal and sagittal multiplanar reformats were obtained from the axial data set by the technologist. Radiation Dose Information: CT Dose: CTDI volume is 19.76 mGy. Dose-length product is 1078.82 mGy*cm FINDINGS: Bibasilar atelectasis. Mild cardiomegaly. Status post cholecystectomy. Mild hepatomegaly with no focal hepatic lesions. Spleen, pancreas and adrenal glands unremarkable. Kidneys, ureters and urinary bladder unremarkable. Uterus and adnexa unremarkable. Stomach is significantly distended and filled with ingested material. Small bowel loops unremarkable. Appendix is unremarkable. Large amount of fecal material within the ascending and transverse colon. Remainder of the large bowel is unremarkable. No evidence of intraperitoneal free air or free fluid. No evidence of aortic aneurysm or dissection. No significant lymphadenopathy. Tiny fat containing umbilical hernia. The soft tissues are unremarkable. Hemangioma within the T11 vertebral body. Multilevel mild degenerative changes of the thoracic and lumbar spine. IMPRESSION: Mild hepatomegaly. Stomach is significantly distended and filled with ingested material. ATED BY: CYNTHIA NAQVI DO DICTATED DATE/TIME: 11/17/242040 SIGNED BY: CYNTHIA NAQVI DO SIGNED DATE/TIME: 11/17/242040 CC: Time of 1ST Reevaluation: 18:05 Reevaluation 1ST: Unchanged Time of 2ND Reevaluation: 19:10 Reevaluation 2ND: Improved Patient Education/Counseling: Diagnosis, Treatment Family Education/Counseling: No Family Present Departure 1 Departure Time of Disposition: 19:10 Impression: Primary Impression: Acute abdominal pain Disposition: 01 HOME / SELF CARE / HOMELESS Condition: Stable e-Prescriptions Ondansetron Odt 4MG Tab (ZOFRAN PO) 4 Mg Tb 4 MG PO Q6HP PRN for 20 Days, #40 TAB ODT TAB-DISSOLVE IN MOUTH, THEN SWALLOW Prov: AILEEN RAZO MD 11/17/24 Famotidine (PEPCID TABLET) 20 Mg Tb 20 MG GT BID PRN for 20 Days, #40 TAB Prov: AILEEN RAZO MD 11/17/24 Discharged With: Self Critical Care Note Critical Care Time?: No Stability Stability form required: No Heart Score Heart Score: Heart Score Response (Comments) Value History N/A 0 EKG N/A 0 Age N/A 0 Risk Factors N/A 0 Troponin N/A 0 Total 0 I personally scribed for AILEEN RAZO MD (NASIR) on 11/17/24 at 17:37. Electronically submitted by Sha Butcher ([email or web address]). I personally scribed for AILEEN RAZO MD (NASIR) on 11/17/24 at 20:57. Electronically submitted by Sha Butcher ([email or web address]). AILEEN RAZO MD Nov 17, 2024 17:37
[2024-11-17 17:53] LABS: Basophils # (auto) 0 10 ^3/uL (0-0.2); Basophils % (auto) 0.9 % (0.0-2.0); Eosinophils # (auto) 0.2 10 ^3/uL (0-0.8); Eosinophils % (auto) 3.6 % (0.0-7.0); Hematocrit 44.8 % (36.0-46.0); Hemoglobin 15.3 g/dL (12.2-16.2); Lymphocytes # (auto) 1.4 10 ^3/uL (0.4-5.4); Lymphocytes % (auto) 24.3 % (10.0-50.0); Mean Corpuscular Hemoglobin 32.2 pg (28.0-32.0); Mean Corpuscular Hgb Conc. 34.1 g/dL (32.0-36.0); Mean Corpuscular Volume 94.4 fL (80.0-100.0); Monocytes # (auto) 0.4 10 ^3/uL (0-1.3); Monocytes % (auto) 7.3 % (0.0-12.0); Neutrophils # (auto) 3.6 10 ^3/uL (1.6-8.6); Neutrophils % (auto) 63.9 % (37.0-80.0); Nucleated Red Blood Cells % 0.1 %; Platelet Count (auto) 305 10^3/uL (140-450); Red Blood Cells 4.75 10^6/uL (4.0-5.20); Red Cell Distribution Width 13.5 % (11.8-14.3); White Blood Cell 5.7 10^3/uL (4.4-10.8)
[2024-11-17 18:12] LABS: Anion Gap 7 (5-15); BUN/Creatinine Ratio 8.1 (10.0-20.0); Calcium 10.2 mg/dL (8.7-10.4); Carbon Dioxide 24 mmol/L (20-31); Glucose 106 mg/dL (74-106); Lipase 43 U/L (12-53); Potassium 3.6 mmol/L (3.5-5.1); Sodium 140 mmol/L (136-145)
[2024-11-17 18:13] LABS: Total Protein 7.9 g/dL (5.7-8.2)
[2024-11-17 18:29] LABS: Alanine Aminotransferase 1349 U/L (7-40); Alkaline Phosphatase 266 U/L (46-116); Aspartate Aminotransferase 681 U/L (13-40); Bilirubin, Total 1.9 mg/dL (0.2-1.0); Blood Urea Nitrogen 6 mg/dL (9-23); Chloride 109 mmol/L (98-107)
[2024-11-17 18:30] LABS: Albumin 4.8 g/dL (3.2-4.8)
[2024-11-17] MEDS: MORPHINE SULFATE 4 MG/ML SYR/VIAL IV ONE (19:26)
[2024-11-17] MEDS: ONDANSETRON HCL 4 MG/2 ML VIAL IV ONE (19:26)
[2024-11-17] MEDS: IOHEXOL 300 MG/ML 100ML BOTTLE IJ ONE (19:41)
--- NOTE | 2024-11-17 20:43 | DVH ---
Exam: CT CT AB PEL WITH IV CON ONLY History: abd pain Comparison Study: None available at time of dictation. TECHNIQUE: Multidetector CT of the abdomen and pelvis with contrast. Axial, coronal and sagittal mult iplanar reformats were obtained from the axial data set by the technologist. Radiation Dose Information: CT Dose: CTDI volume is 19.76 mGy. Dose-length product is 1078.82 mGy*cm FINDINGS: Bibasilar atelectasis. Mild cardiomegaly. Status post cholecystectomy. Mild hepatomegaly with no focal hepatic lesions. Spleen, pancreas and a drenal glands unremarkable. Kidneys, ureters and urinary bladder unremarkable. Uterus and adnexa unremarkable. Stomach is significantly distended and filled with ingested material. Small bowel loops unremarkable. Appendix is unremarkable. Large amount of fecal material within the ascending and transverse colon. Remainder of the large bowel is unremarkable. No evidence of intraperitoneal free air or free fluid. No evidence of aortic aneurysm or dissection. No significant lymphadenopathy. Tiny fat containing umbilical hernia. The soft tissues are unremarkable. Hemangioma within the T11 ve rtebral body. Multilevel mild degenerative changes of the thoracic and lumbar spine. IMPRESSION: Mild hepatomegaly. Stomach is significantly distended and filled with ingested material.
[2024-11-17] MEDS ORDERED: ZOFR4T PO (20:52)
[2024-11-17] MEDS ORDERED: FAMO20TA10 GT (20:52)
[2024-11-17 21:00] VITALS: BP 114/64; PULSE 86; RESP 16; TEMP 98.3; O2SAT 98
[2024-11-17] MEDS: MAALOX PLUS or MAALOX 30 ML PO ONE (21:13)
[2024-11-17] MEDS: FAMOTIDINE 20 MG TAB PO ONE (21:14)
[2024-11-17] MEDS: ONDANSETRON ODT 4 MG TAB PO ONE (21:15)
== END 2024-11-17 21:00 | disposition home or self-care (01) ==
LOC: ER 16:57
DX: R10.13 Epigastric pain (principal); R11.0 Nausea; Z90.49 Acquired absence of other specified parts of digestive tract; Z79.2 Long term (current) use of antibiotics; Z79.899 Other long term (current) drug therapy; Z88.0 Allergy status to penicillin
CPT/HCPCS: 36415; 74177; 80053; 81001; 83690; 85025; 96360; 96361; 99285; Q9967; J2405